=== PATIENT | female | born 1970 | race Caucasian/White ===

== ENCOUNTER → 2017-01-25 | Outpatient (CLI) | payer SELFPAY | END | disposition home or self-care (01) | LOC: LAB.O 10:41 | PROVIDERS: ATTEND Family Medicine | DX: R19.7 Diarrhea, unspecified (principal); R10.84 Generalized abdominal pain ==

== ENCOUNTER → 2018-11-14 | Outpatient (CLI) | payer SELFPAY | LOC: LAB.O 12:01 | PROVIDERS: ATTEND Family Medicine | DX: M25.50 Pain in unspecified joint (principal); D86.9 Sarcoidosis, unspecified; M32.0 Drug-induced systemic lupus erythematosus ==

== ENCOUNTER → 2020-05-29 | Outpatient (CLI) | payer BC ==
--- NOTE | 2020-05-29 23:32 | US ---
EXAM DESCRIPTION: Abdomen,Complete CLINICAL HISTORY: 50 years Female, Abnormal results of liver function studies COMPARISON: None. TECHNIQUE: Multiple sonographic images of the abdomen with color Doppler analysis. FINDINGS: Liver: Liver measures 14.9 cm. Increased parenchymal echogenicity. Biliary Tree: Normal gallbladder. Gallbladder wall thickness of 2 mm. No intrahepatic biliary dilatation. Common bile duct diameter of 4 mm. Pancreas: Normal visualized portions of the pancreas. Spleen: Normal. Maximal dimension of 10.7 cm. Kidneys: Normal size and location without hydronephrosis. Vasculature: Unremarkable upper abdominal aorta and IVC. Abdominal cavity: No ascites. IMPRESSION: 1. No acute sonographic abnormality of the abdomen. 2. Echogenic liver seen with fatty infiltration or chronic liver disease. Electronically signed by: Artur Perla MD 05/29/2020 11:31 PM CDT
== END ==
LOC: US 08:15
PROVIDERS: ATTEND Family Medicine
DX: R94.5 Abnormal results of liver function studies (principal); K76.9 Liver disease, unspecified

== ENCOUNTER → 2020-05-29 | Outpatient (CLI) | payer BC | LOC: GMAHI 10:40 | PROVIDERS: ATTEND Nurse Practitioner Family | DX: N95.1 Menopausal and female climacteric states (principal); R53.83 Other fatigue ==